=== PATIENT | male | born 1970 | race Caucasian/White ===

== ENCOUNTER 2020-11-29 09:52 | Emergency (ER) | payer SELFPAY ==
[2020-11-29] MEDS ORDERED: NORMAL SALINE 1000 ML 1,000 ML IV ONE (10:08)
[2020-11-29] MEDS ORDERED: KETOROLAC TROMETHAMINE INJ/PF 30 MG/1 ML SDV IV ONE (10:09)
--- NOTE | 2020-11-29 10:14 | ER Document Report ---
ED Medical Screen (RME) - General Chief Complaint: Flank Pain Stated Complaint: LEFT FLANK PAIN - HPI Notes: 11/29/20 10:12 Rapid Medical Exam HPI: Patient is a 50-year-old male presents to the ER with acute onset of left flank pain that began this morning. No injury or trauma. Patient has a history of kidney stones many years ago. Denies any gross hematuria but really was not pain attention this morning denies radiation of pain to abdomen. Intermittent radiation of pain to his left leg. Denies incontinence, saddle anesthesia, lower extremity weakness, fever/chills, nausea vomiting. No treatments tried. No prior abdominal or back surgeries. Physical Exam: GENERAL: Well-appearing, well-nourished and in mild acute distress due to pain HEAD: Atraumatic, normocephalic. ENT: Moist mucous membranes. RESP: Respirations even and unlabored CV- Regular rate. NEURO: No focal neurological deficits. Moves all extremities spontaneously and on command. My involvement in this patients care was limited to a rapid initial assessment. A comprehensive ED assessment and evaluation of the patient, analysis of test results, treatment, and completion of the medical decision making process will be performed by other ER providers. - Related Data Allergies/Adverse Reactions: No Known Allergies Allergy (Unverified 11/29/20 10:02) Home Medications: Cialis, Xanax Physical Exam - Vital signs Vitals: Temp Pulse Resp BP Pulse Ox 97.9 F 85 20 165/113 H 96 11/29/20 09:59 11/29/20 09:59 11/29/20 09:59 11/29/20 09:59 11/29/20 09:59 Course - Vital Signs Vital signs: Temp Pulse Resp BP Pulse Ox 97.9 F 85 20 165/113 H 96 11/29/20 09:59 11/29/20 09:59 11/29/20 09:59 11/29/20 09:59 11/29/20 09:59
[2020-11-29 10:30] LABS: ABSOLUTE BASOPHILS # (AUTO) 0.1 10^3/uL (0.0-0.2); ABSOLUTE EOSINOPHILS # (AUTO) 0.2 10^3/uL (0.0-0.6); ABSOLUTE LYMPHOCYTES (AUTO) 1.5 10^3/uL (0.5-4.7); ABSOLUTE MONOCYTES (AUTO) 0.4 10^3/uL (0.1-1.4); ABSOLUTE NEUT (AUTO) 4.1 10^3/uL (1.7-8.2); BASOPHILS % (AUTO) 1.1 % (0-2); EOSINOPHILS % (AUTO) 3.2 % (0-6); HEMATOCRIT 52.8 % (37.9-51.0); HEMOGLOBIN 18.4 g/dL (13.5-17.0); LYMPHOCYTES % (AUTO) 23.5 % (13-45); MEAN CORPUSCULAR HEMOGLOBIN 31.7 pg (27.0-33.4); MEAN CORPUSCULAR HGB CONC 34.9 g/dL (32.0-36.0); MEAN CORPUSCULAR VOLUME 91 fl (80-97); MONOCYTES % (AUTO) 6.6 % (3-13); PLATELET COUNT 223 10^3/uL (150-450); RED CELL DISTRIBUTION WIDTH 14.1 % (11.5-14.0); SEGMENTED NEUTROPHILS % (AUTO) 65.6 % (42-78); TOTAL CELLS COUNTED % (AUTO) 100 %; WHITE BLOOD COUNT 6.3 10^3/uL (4.0-10.5)
[2020-11-29 10:39] LABS: APPEARANCE,URINE CLEAR; BILIRUBIN,URINE NEGATIVE (NEGATIVE); COLOR,URINE YELLOW; GLUCOSE, URINE NEGATIVE (NEGATIVE); KETONES,URINE TRACE mg/dL (NEGATIVE); LEUKOCYTE ESTERASE,URINE NEGATIVE (NEGATIVE); NITRITE,URINE NEGATIVE (NEGATIVE); PROTEIN,URINE 30 mg/dL (NEGATIVE); URINE SPECIFIC GRAVITY 1.023
[2020-11-29 10:46] LABS: ALBUMIN 4.3 g/dL (3.5-5.0); ALKALINE PHOSPHATASE 66 U/L (38-126); ANION GAP 8 (5-19); ASPARTATE AMINO TRANSFERASE 21 U/L (17-59); BILIRUBIN,DIRECT 0.2 mg/dL (0.0-0.4); BILIRUBIN,TOTAL 0.6 mg/dL (0.2-1.3); BLOOD UREA NITROGEN 14 mg/dL (7-20); CARBON DIOXIDE 21 mmol/L (22-30); CHLORIDE 108 mmol/L (98-107); GLUCOSE 136 mg/dL (75-110); POTASSIUM 4.8 mmol/L (3.6-5.0); TOTAL PROTEIN 7.8 g/dL (6.3-8.2)
--- NOTE | 2020-11-29 10:47 | RADIOLOGY REPORT (SQ) ---
EXAM DESCRIPTION: CT ABD/PELVIS NO ORAL OR IV IMAGES COMPLETED DATE/TIME: 11/29/2020 10:33 am REASON FOR STUDY: left flank pain, kidney stone hx COMPARISON: None. TECHNIQUE: CT scan of the abdomen and pelvis performed without intravenous or oral contrast. Images reviewed with lung, soft tissue, and bone windows. Reconstructed coronal and sagittal MPR images revi ewed. All images stored on PACS. All CT scanners at this facility use dose modulation, iterative reconstruction, and/or weight based d osing when appropriate to reduce radiation dose to as low as reasonably achievable (ALARA). [facility]: Dose Right [facility]: CareDose [facility]: Dose Right [facility]: Teradose 4D [facility]: Smart ACell RADIATION DOSE: CT Rad equipment meets quality standard of care and radiation dose reduction techniq ues were employed. CTDIvol: 10.9 mGy. DLP: 612 mGy-cm.mGy. LIMITATIONS: None. FINDINGS: LOWER CHEST: No significant findings. No nodules or infiltrates. NON-CONTRASTED LIVER, SPLEEN, ADRENALS: Evaluation limited by lack of IV contrast. No identified sign ificant masses. PANCREAS: No masses. No peripancreatic inflammatory changes. GALLBLADDER: Gallstones. No surrounding edema. RIGHT KIDNEY AND URETER: No suspicious masses. Assessment limited by lack of IV contrast. No signif icant calcifications. No hydronephrosis or hydroureter. LEFT KIDNEY AND URETER: No suspicious masses. Assessment limited by lack of IV contrast. No signifi cant calcifications. No hydronephrosis or hydroureter. AORTA AND RETROPERITONEUM: No aneurysm. No retroperitoneal masses or adenopathy. BOWEL AND PERITONEAL CAVITY: Scattered diverticuli. No acute diverticulitis. No mesenteric inflamma tion. APPENDIX: Normal. PELVIS, BLADDER, AND ABDOMINAL WALL:No abnormal masses. No free fluid. Bladder normal. BONES: No significant findings. OTHER: No other significant finding. IMPRESSION: Gallstones. No other significant findings in the abdomen or pelvis. No renal or ureter al stones. COMMENT: Quality ID # [id number]: Final reports with documentation of one or more dose reduction techniques (e.g., Automated exposure control, adjustment of the mA and/or kV according to patient size, use of iterative reconstruction technique) TECHNICAL DOCUMENTATION: JOB ID: [id number] 2010 [employer]- All Rights Reserved Reading location - IP/workstation name: [email or web address]
[2020-11-29] MEDS ORDERED: KETOROLAC TROMETHAMINE INJ/PF 30 MG/1 ML SDV ONE (14:01)
[2020-11-29] MEDS ORDERED: ONDANSETRON HCL INJ/PF 4 MG/2 ML SDV IV ONE (14:08)
[2020-11-29] MEDS ORDERED: MORPHINE SULFATE 10 MG/ML INJ IV ONE (14:08)
--- NOTE | 2020-11-29 14:09 | ER Document Report ---
ED GI/ - General Chief Complaint: Flank Pain Stated Complaint: LEFT FLANK PAIN Time Seen by Provider: 11/29/20 14:02 Notes: Patient is a 50-year-old male who comes emergency department for chief complaint of left flank pain that began this morning. He reports some nausea but denies vomiting. He denies injury, chest pain, abdominal pain, fever/chills, or any other complaints. He states he has had a kidney stone a long time ago and feels this is most likely. He has had a CABG as well. He drinks beer nightly with dinner, denies ever having dependency or withdrawal issues. He denies any abdominal surgeries. - Related Data Allergies/Adverse Reactions: No Known Allergies Allergy (Unverified 11/29/20 10:02) Home Medications: Cialis, Xanax Past Medical History - General Information source: Patient - Social History Smoking Status: Current Every Day Smoker Smoking Education Provided: Yes - <3 min Frequency of alcohol use: Heavy Drug Abuse: None Lives with: Family Family History: Reviewed & Not Pertinent - Immunizations Immunizations up to date: Yes Hx Diphtheria, Pertussis, Tetanus Vaccination: Yes Review of Systems - Review of Systems Constitutional: No symptoms reported EENT: No symptoms reported Cardiovascular: No symptoms reported Respiratory: No symptoms reported Gastrointestinal: See HPI Genitourinary: See HPI Male Genitourinary: No symptoms reported Musculoskeletal: No symptoms reported Skin: No symptoms reported Hematologic/Lymphatic: No symptoms reported Neurological/Psychological: No symptoms reported Physical Exam - Vital signs Vitals: Temp Pulse Resp BP Pulse Ox 97.9 F 85 20 165/113 H 96 11/29/20 09:59 11/29/20 09:59 11/29/20 09:59 11/29/20 09:59 11/29/20 09:59 - Notes Notes: GENERAL: Alert, interacts well. No acute distress. HEAD: Normocephalic, atraumatic. EYES: Pupils equal, round, and reactive to light. Extraocular movements intact. ENT: Oral mucosa moist, tongue midline. Oropharynx unremarkable. Airway patent. LUNGS: Clear to auscultation bilaterally, no wheezes, rales, or rhonchi. No respiratory distress. Non-tender chest wall. HEART: Regular rate and rhythm. No murmur ABDOMEN: There is some tenderness in the epigastric and left upper quadrant areas, remaining abdomen unremarkable. No guarding or rigidity, no rebound tenderness. Bowel sounds present throughout. EXTREMITIES: Moves all 4 extremities spontaneously. No edema, normal radial and dorsalis pedis pulses bilaterally. No cyanosis. BACK: no cervical, thoracic, lumbar midline tenderness. No saddle anesthesia, n ormal distal neurovascular exam. Moves all extremities in full range of motion. NEUROLOGICAL: Alert and oriented x3. Normal speech. Cranial nerves II through XII grossly intact. Strength 5/5 in all extremities. PSYCH: Normal affect, normal mood. SKIN: Warm, dry, normal turgor. No rashes or lesions noted. Course - Re-evaluation Re-evalutation: Patient has some mild abdominal tenderness in the left mid to left upper abdomen, no noted CVA tenderness. I reviewed work-up from triage including CT of the abdomen pelvis which was unremarkable. CBC unremarkable, chemistry unremarkable, lipase is elevated at 1600. Based on patient's nightly alcohol use of 2 beers, elevated lipase, left flank pain, and negative work-up otherwise I suspect pancreatitis secondary to alcohol abuse. I do not see evidence of gallstone pancreatitis on laboratory work-up with normal bilirubin and LFTs, alk phos, LFTs. CAT scan also did not see any obvious abnormality. There are gallstones but based on his overall clinical picture I still do not believe this is gallstone pancreatitis. Patient has not vomited, he is improved after pain medication and fluids, he is tolerating p.o. without any difficulty. Discussed with patient in detail, he will be discharged with return precautions which I discussed at length, patient states he will never drink alcohol again, states he understands return precautions. Stable and well-appearing at time of discharge. - Vital Signs Vital signs: Temp Pulse Resp BP Pulse Ox 97.9 F 77 16 172/97 H 98 11/29/20 09:59 11/29/20 16:38 11/29/20 16:38 11/29/20 16:38 11/29/20 16:38 - Laboratory Results Result Diagrams: 11/29/20 10:20 11/29/20 10:20 Laboratory Results Interpreted: 11/29/20 11/29/20 11/29/20 10:20 10:20 10:20 RBC 5.80 H Hgb 18.4 H Hct 52.8 H RDW 14.1 H Sodium 136.7 L Chloride 108 H Carbon Dioxide 21 L Glucose 136 H Lipase 1647.8 H Urine Protein 30 H Urine Ketones TRACE H Urine Urobilinogen 2.0 H Critical Laboratory Results Reviewed: No Critical Results - Radiology Results Critical Radiology Results Reviewed: No Critical Results Discharge - Discharge Clinical Impression: Flank pain Pancreatitis Qualifiers: Chronicity: acute Pancreatitis type: alcohol induced Acute pancreatitis complication: no infection or necrosis Qualified Code(s): K85.20 - Alcohol induced acute pancreatitis without necrosis or infection Condition: Stable Disposition: HOME, SELF-CARE Additional Instructions: Your work-up indicates pancreatitis. This appears to be the cause of your pain. I recommend clear fluid diet, lots of fluids, then progress to bland diet as pain resolves. Avoid any alcohol and initially avoid any fatty foods. Take pain nausea medication if needed as prescribed. Follow-up with primary care for additional evaluation and management. Return if you worsen including severe worsening pain, vomiting, fever, or any other concerning symptoms. Prescriptions: Oxycodone HCl/Acetaminophen [Percocet 5-325 mg Tablet] 1 - 2 tab PO TID PRN #15 tab PRN Reason: Ondansetron [Zofran Odt 4 mg Tablet] 1 - 2 tab PO Q4H PRN #15 tab.rapdis PRN Reason: For Nausea/Vomiting Forms: Smoking Cessation Education, Return to Work, Elevated Blood Pressure
[2020-11-29] MEDS ORDERED: PROMETHAZINE HCL 25 MG TABLET PO ONE (15:04)
[2020-11-29] MEDS ORDERED: OXYCODONE HCL IR 5 MG TABLET PO ONE (15:04)
[2020-11-29] MEDS ORDERED: ONDANSETRON ODT 4 MG TAB (6 TAB/ER DISP) PO PRN (16:27)
[2020-11-29] MEDS ORDERED: HYDROCODONE/ACETAMINOPHEN 5-325 MG (6 TAB/ER DISP) PO PRN (16:27)
[2020-11-29 16:39] VITALS: BP 172/97
== END 2020-11-29 16:38 | disposition home or self-care (01) ==
LOC: ER 09:52
DX: K85.20 Alcohol induced acute pancreatitis without necrosis or infection (principal); K80.20 Calculus of gallbladder without cholecystitis without obstruction; R11.0 Nausea; R10.9 Unspecified abdominal pain; R10.816 Epigastric abdominal tenderness; R10.812 Left upper quadrant abdominal tenderness; F17.200 Nicotine dependence, unspecified, uncomplicated; Z79.899 Other long term (current) drug therapy; Z87.442 Personal history of urinary calculi; Z95.1 Presence of aortocoronary bypass graft
CPT/HCPCS: 99285; 96361; 96375; 96374; 36415; 83690; 85025; 80053; 81001; 74176; J2270; J2405; J7030

== ENCOUNTER 2020-12-09 09:47 | Emergency (ER) | payer SELFPAY ==
[2020-12-09] MEDS ORDERED: DEXAMETHASONE SOD PHOSPHATE INJ 4 MG/1 ML VIAL IM ONE (10:26)
--- NOTE | 2020-12-09 10:30 | ER Document Report ---
HPI - HPI Time Seen by Provider: 12/09/20 10:09 Pain Level: 3 Notes: 50-year-old male patient presenting to the emergency department with complaints of left sided low back pain. Patient reports pain ongoing for the last 2 weeks, states getting worse over the last few days. He denies any known injury to the area. He denies any loss of control of bowel or bladder, denies any urinary retention or saddle anesthesia. He states he has had a similar pain in the past. He denies any fever, chills, nausea, vomiting or diarrhea. - ROS Systems Reviewed and Negative: Yes All other systems reviewed and negative - See HPI Past Medical History - General Information source: Patient - Social History Smoking Status: Current Every Day Smoker Chew tobacco use (# tins/day): No Frequency of alcohol use: None Drug Abuse: None Family History: Reviewed & Not Pertinent Endocrine Medical History: Reports: Hx Diabetes Mellitus Type 2 Past Surgical History: Reports: Hx Cardiac Surgery - bypass - Immunizations Immunizations up to date: Yes Hx Diphtheria, Pertussis, Tetanus Vaccination: Yes Vertical Provider Document - CONSTITUTIONAL Notes: PHYSICAL EXAMINATION: GENERAL: Well-appearing, well-nourished and in no acute distress. HEAD: Atraumatic, normocephalic. EYES: Pupils equal round extraocular movements intact, conjunctiva are normal. ENT: Nares patent NECK: Normal range of motion LUNGS: No respiratory distress Musculoskeletal: Normal range of motion tenderness with palpation in the lumbar paraspinous region, no vertebral tenderness, step-off or deformity., NEUROLOGICAL: Normal speech, normal gait. PSYCH: Normal mood, normal affect. SKIN: Warm, Dry, normal turgor, no rashes or lesions noted. Course - Re-evaluation Re-evalutation: 12/11/20 09:24 Presentation of a well appearing patient complaining of acute on chronic back pain. No rapid progression of symptoms, systemic symptoms including fevers, chills, weight loss, history of recent bacterial infection, bilateral symptoms, numbness, weakness, difficulty walking, urinary retention or bowel incontinence, personal history of cancer, immunosuppression, diabetes, known AAA, or history of IV drug use. Exam is without point tenderness over vertebral bodies, pulsatile abdominal mass, and patient has symmetric and intact lower extremity strength, sensation, and reflexes without clonus. 2+ symmetric medial malleolar and dorsalis pedis pulses Based on history and physical, I have a very low suspicion of a concerning etiology of pain including epidural compression syndrome, spinal infection, transverse myelitis, malignancy, abdominal aortic aneurysm, renal colic, acute lower extremity claudication, neurogenic claudication, ankylosing spondylitis, or other intra-abdominal process. Due to absence of concerning risk factors in history and physical as well as absence of rapidly progressive, severe, or bilateral symptoms, will defer imaging at this point. Plan to manage conservatively with outpatient analgesia, analgesia, and physical therapy. - Vital Signs Vital signs: Temp Pulse Resp BP Pulse Ox 97.6 F 81 16 162/112 H 99 12/09/20 09:51 12/09/20 09:51 12/09/20 09:51 12/09/20 09:51 12/09/20 09:51 - Laboratory Results Critical Laboratory Results Reviewed: No Critical Results - Radiology Results Critical Radiology Results Reviewed: No Critical Results Discharge - Discharge Clinical Impression: Back pain Qualifiers: Back pain location: low back pain Chronicity: acute Back pain laterality: left Sciatica presence: with sciatica Sciatica laterality: sciatica of left side Qualified Code(s): M54.42 - Lumbago with sciatica, left side Sciatica Qualifiers: Laterality: left Qualified Code(s): M54.32 - Sciatica, left side Condition: Stable Disposition: HOME, SELF-CARE Instructions: Low Back Pain ([facility]), Sciatica ([facility]) Additional Instructions: Please follow-up with your primary care provider for possible physical therapy or MRI if your pain continues. The ER will not be able to prescribe any controlled substances for back pain. Prescriptions: Oxycodone HCl/Acetaminophen [Percocet 5-325 mg Tablet] 1 tab PO Q6HP PRN #12 tablet PRN Reason: Methocarbamol [Robaxin 750 mg Tablet] 750 mg PO Q6HP PRN #20 tablet PRN Reason: Forms: Return to Work Referrals: ISI BAR MD [ACTIVE STAFF] - Follow up as needed MAN ARGUELLES MD [ACTIVE STAFF] - Follow up as needed
[2020-12-09 10:40] VITALS: BP 158/98
== END 2020-12-09 10:40 | disposition home or self-care (01) ==
LOC: ER 09:47
DX: M54.42 Lumbago with sciatica, left side (principal); E11.9 Type 2 diabetes mellitus without complications; F17.200 Nicotine dependence, unspecified, uncomplicated
CPT/HCPCS: 99284; 96372; J1100

== ENCOUNTER 2020-12-11 09:31 | Emergency (ER) | payer SELFPAY ==
--- NOTE | 2020-12-11 10:23 | ER Document Report ---
ED Medical Screen (RME) - General Chief Complaint: Hip Pain Stated Complaint: LEFT HIP PAIN Time Seen by Provider: 12/11/20 10:21 Primary Care Provider: TAN PINON [Primary Care Provider] - Follow up as needed Notes: HPI: 50-year-old male presenting again to the emergency department complaining of left lower back pain into the hip and down the leg with numbness and tingling. States he cannot walk or stand. States this is the third time he has been here for this problem came by ambulance. States that initially he was given a shot of steroids and oxycodone and a muscle relaxer which did not help. States he called his primary and has an MRI scheduled for Sunday of this coming week. States the pain was so bad he could not wait so decided to come back to the emergency department. PHYSICAL EXAMINATION: There is tenderness along the left lower lumbar back into the left hip region. Limited exam by positioning in triage and patient comfort. I have greeted and performed a rapid initial assessment of this patient. A comprehensive ED assessment and evaluation of the patient, analysis of test results and completion of medical decision making process will be conducted by an additional ED providers. Please note that clinical decision making for this patient was made during the 2019 pandemic of novel coronavirus which caused a significant strain on the healthcare system including at this particular facility. Criteria for admission discharge and level of care decisions as well as treatment decisions have necessarily changed - Related Data Allergies/Adverse Reactions: No Known Allergies Allergy (Verified 12/11/20 10:12) Past Medical History Endocrine Medical History: Reports: Hx Diabetes Mellitus Type 2 Past Surgical History: Reports: Hx Cardiac Surgery - bypass - Immunizations Immunizations up to date: Yes Hx Diphtheria, Pertussis, Tetanus Vaccination: Yes Physical Exam - Vital signs Vitals: Temp Pulse Resp BP Pulse Ox 98.2 F 73 24 H 147/93 H 94 12/11/20 09:45 12/11/20 09:45 12/11/20 09:45 12/11/20 09:45 12/11/20 09:45 Course - Vital Signs Vital signs: Temp Pulse Resp BP Pulse Ox 98.2 F 73 24 H 147/93 H 94 12/11/20 09:45 12/11/20 09:45 12/11/20 09:45 12/11/20 09:45 12/11/20 09:45 Doctor's Discharge - Discharge Referrals: LOCALMD,NO [Primary Care Provider] - Follow up as needed
[2020-12-11 11:15] LABS: ABSOLUTE BASOPHILS # (AUTO) 0.2 10^3/uL (0.0-0.2); ABSOLUTE EOSINOPHILS # (AUTO) 0.4 10^3/uL (0.0-0.6); ABSOLUTE LYMPHOCYTES (AUTO) 3.7 10^3/uL (0.5-4.7); ABSOLUTE MONOCYTES (AUTO) 0.6 10^3/uL (0.1-1.4); ABSOLUTE NEUT (AUTO) 5.2 10^3/uL (1.7-8.2); BASOPHILS % (AUTO) 1.9 % (0-2); EOSINOPHILS % (AUTO) 3.7 % (0-6); HEMATOCRIT 53.9 % (37.9-51.0); HEMOGLOBIN 18.9 g/dL (13.5-17.0); LYMPHOCYTES % (AUTO) 36.4 % (13-45); MEAN CORPUSCULAR HGB CONC 35.1 g/dL (32.0-36.0); MEAN CORPUSCULAR VOLUME 91 fl (80-97); MONOCYTES % (AUTO) 6.1 % (3-13); PLATELET COUNT 241 10^3/uL (150-450); RED BLOOD COUNT 5.92 10^6/uL (4.35-5.55); RED CELL DISTRIBUTION WIDTH 14.1 % (11.5-14.0); SEGMENTED NEUTROPHILS % (AUTO) 51.9 % (42-78); TOTAL CELLS COUNTED % (AUTO) 100 %; WHITE BLOOD COUNT 10.1 10^3/uL (4.0-10.5)
[2020-12-11 11:29] LABS: ALBUMIN 4.2 g/dL (3.5-5.0); ALKALINE PHOSPHATASE 45 U/L (38-126); ANION GAP 10 (5-19); ASPARTATE AMINO TRANSFERASE 22 U/L (17-59); BILIRUBIN,DIRECT 0.2 mg/dL (0.0-0.4); BILIRUBIN,TOTAL 0.9 mg/dL (0.2-1.3); BLOOD UREA NITROGEN 20 mg/dL (7-20); CARBON DIOXIDE 23 mmol/L (22-30); CHLORIDE 104 mmol/L (98-107); GLUCOSE 121 mg/dL (75-110); POTASSIUM 4.5 mmol/L (3.6-5.0); TOTAL PROTEIN 7.6 g/dL (6.3-8.2)
[2020-12-11] MEDS ORDERED: MORPHINE SULFATE 10 MG/ML INJ IV ONE ×2 (12:29→15:28)
[2020-12-11] MEDS ORDERED: METHYLPREDNISOLONE INJ 125 MG/2 ML SDV IV ONE (12:29)
[2020-12-11] MEDS ORDERED: ONDANSETRON HCL INJ/PF 4 MG/2 ML SDV IV ONE ×2 (12:29→15:28)
[2020-12-11] MEDS ORDERED: KETOROLAC TROMETHAMINE INJ/PF 30 MG/1 ML SDV IV ONE (12:29)
--- NOTE | 2020-12-11 12:48 | ER Document Report ---
Entered by VIOLET NATHAN SCRIBE 12/11/20 1220 Acting as scribe for:MONTSE ROMO MD ED Neck/Back Problem - General Chief Complaint: Hip Pain Stated Complaint: LEFT HIP PAIN Time Seen by Provider: 12/11/20 10:21 Primary Care Provider: TAN PINON [NO LOCAL MD] - Follow up as needed Information source: Patient Notes: This 50 year old male patient presents to the emergency department today with complaints of left low back/hip pain for the last few weeks. He reports that two days ago he bent over to throw a dog pee pad down on the ground and when he stood back up he "felt something tear, or rip, or burst" and it brought him to his knees. He reports some vague LLE numbness since this incident that goes from this left lateral thigh down to around his ankle. - Related Data Allergies/Adverse Reactions: No Known Allergies Allergy (Verified 12/11/20 10:12) Past Medical History - General Information source: Patient - Social History Smoking Status: Current Every Day Smoker Cigarette use (# per day): Yes Frequency of alcohol use: None Drug Abuse: Marijuana Lives with: Family Family History: Reviewed & Not Pertinent - Past Medical History Cardiac Medical History: Reports: Hx Coronary Artery Disease Past Surgical History: Reports: Hx Coronary Artery Bypass Graft - Immunizations Immunizations up to date: Yes Hx Diphtheria, Pertussis, Tetanus Vaccination: Yes Review of Systems - Review of Systems Constitutional: No symptoms reported EENT: No symptoms reported Cardiovascular: No symptoms reported Respiratory: No symptoms reported Gastrointestinal: No symptoms reported Genitourinary: No symptoms reported Male Genitourinary: No symptoms reported Musculoskeletal: See HPI, Joint pain - left hip/back pain Skin: No symptoms reported Hematologic/Lymphatic: No symptoms reported Neurological/Psychological: No symptoms reported -: Yes All other systems reviewed and negative Physical Exam - Vital signs Vitals: Temp Pulse Resp BP Pulse Ox 98.2 F 73 24 H 147/93 H 94 12/11/20 09:45 12/11/20 09:45 12/11/20 09:45 12/11/20 09:45 12/11/20 09:45 - Notes Notes: Physical Exam: General: Alert, appears well. HEENT: Normocephalic. Atraumatic. PERRL. Extraocular movements intact. O ropharynx clear. Neck: Supple. Non-tender. Respiratory: No respiratory distress. Clear and equal breath sounds bilaterally. Cardiovascular: Regular rate and rhythm. Abdominal: Obese. Non-tender. No distension. Normal Bowel Sounds. Back: Left sided sacral tenderness to palpation. Negative straight leg raise bilaterally. Lumbar extension causes pain down the left lateral thigh and left l ow back. Extremities: Moves all four extremities. Upper extremities: Normal inspection. Normal ROM. Lower extremities: Normal inspection. No edema. Normal ROM. Neurological: Normal cognition. AAOx4. Normal speech. Psychological: Normal affect. Normal Mood. Skin: Warm. Dry. Normal color. Course - Vital Signs Vital signs: Temp Pulse Resp BP Pulse Ox 98.2 F 73 24 H 147/93 H 94 12/11/20 09:45 12/11/20 09:45 12/11/20 09:45 12/11/20 09:45 12/11/20 09:45 - Laboratory Results Result Diagrams: 12/11/20 10:35 12/11/20 10:35 Laboratory Results Interpreted: 12/11/20 12/11/20 10:35 10:35 RBC 5.92 H Hgb 18.9 H Hct 53.9 H RDW 14.1 H Sodium 136.7 L Glucose 121 H Critical Laboratory Results Reviewed: No Critical Results - Radiology Results Radiology Results Interpreted: 12/11/20 14:53 MRI shows left foraminal annular tear and disc protrusion causing moderate left foraminal stenosis and partial effacement of the fat around the exiting left L4 nerve root. Critical Radiology Results Reviewed: Yes Attending or Supervising Physician who Reviewed Radiology: MONTSE ROMO Discharge - Discharge Clinical Impression: Herniation of left side of L4-L5 intervertebral disc, Lumbosacral radiculopathy at L4 Condition: Stable Disposition: HOME, SELF-CARE Additional Instructions: Herniated Disc: You have a herniated disc. A vertebral disc is a tissue "cushion" between the bones of the spine. When it herniates, a portion bulges out. If it pushes on a nerve, it can cause radiation of pain, numbness, weakness, or tingling in the area served by the affected nerve. Most herniated discs do NOT need surgery. In fact about one-quarter of normal, symptom-free people have at least one herniated disc. Symptoms will usually go away after a few weeks. Rest on a firm surface. Avoid lying on your stomach. If on your back, put a pillow under the knees. If on your side, bend your legs and put a pillow between the knees. Temporarily avoid bending, lifting, and other activity that increases pain. Depending on the severity of symptoms, we may prescribe antiinflammatory medicine such as ibuprofen, corticosteroids, muscle relaxers, or narcotic pain medication. Gentle heat may be used intermittently along the spine. Spinal manipulation or adjustment is usually not recommended for disk herniation. Exercises to strengthen your back and abdominal muscles are prescribed as your symptoms improve. Your doctor will advise you on the proper care at each stage in your recovery. You may be better in a few days -- or healing may take several weeks. Return or call the doctor if you develop severe unrelieved pain, increasing weakness or numbness, or loss of bowel or bladder control. Follow the above instructions. Take medications as prescribed. Follow-up with a spine surgeon to review your MRI and treatment plan. RETURN TO THE EMERGENCY ROOM IF ANY NEW OR WORSENING SYMPTOMS. You were given a work note to return to work work a week from this Sunday. You will have been off of the steroids completely for a few days at that point, if you continue to have pain then you should not try to return to work. Prescriptions: Prednisone [Deltasone 10 mg Tablet] 10 mg PO ASDIR PRN #27 tablet PRN Reason: Oxycodone HCl/Acetaminophen [Percocet 5-325 mg Tablet] 1 tab PO ASDIR PRN #15 tablet PRN Reason: Forms: Return to Work Referrals: LOCALMD,NO [NO LOCAL MD] - Follow up as needed I personally performed the services described in the documentation, reviewed and edited the documentation which was dictated to the scribe in my presence, and it accurately records my words and actions.
[2020-12-11 12:59] LABS: APPEARANCE,URINE CLEAR; BILIRUBIN,URINE NEGATIVE (NEGATIVE); COLOR,URINE YELLOW; GLUCOSE, URINE NEGATIVE (NEGATIVE); KETONES,URINE NEGATIVE (NEGATIVE); LEUKOCYTE ESTERASE,URINE NEGATIVE (NEGATIVE); NITRITE,URINE NEGATIVE (NEGATIVE); PROTEIN,URINE NEGATIVE (NEGATIVE); URINE SPECIFIC GRAVITY 1.016; UROBILINOGEN,URINE NEGATIVE mg/dL (<2.0)
[2020-12-11 13:16] LABS: URINE AMPHETAMINES SCREEN NEGATIVE; URINE BARBITURATES SCREEN NEGATIVE; URINE COCAINE SCREEN NEGATIVE; URINE METHADONE SCREEN NEGATIVE; URINE PHENCYCLIDINE SCREEN NEGATIVE
[2020-12-11 13:23] LABS: URINE BENZODIAZEPINES SCREEN UNCONFIRMED POSITIVE; URINE MARIJUANA (THC) SCREEN UNCONFIRMED POSITIVE
--- NOTE | 2020-12-11 14:49 | RADIOLOGY REPORT (SQ) ---
EXAM DESCRIPTION: MRI LUMBAR SPINE WITHOUT IMAGES COMPLETED DATE/TIME: 12/11/2020 2:30 pm REASON FOR STUDY: Left lumbar radiculopathy COMPARISON: CT abdomen pelvis 11/29/2020 TECHNIQUE: Sagittal and Axial imaging includes T1, T2, STIR and gradient echo sequences. Coronal T2/ HASTE imaging. LIMITATIONS: None. FINDINGS: VISUALIZED UPPER ABDOMEN: Limited evaluation. No acute or suspicious findings suggested. SEGMENTATION: No transitional anatomy. The lowest well-developed disc space is labeled L5-S1. ALIGNMENT: Anatomic. VERTEBRAE: Intact. BONE MARROW: Normal. No marrow replacement or reactive changes. DISC SIGNAL: Decreased T2 weighted intervertebral disc signal at L3-4 and L4-5 POSTERIOR ELEMENTS: Generally intact. No pars defect evident. HARDWARE: None in the spine. CORD AND CONUS: Normal in size and signal intensity. Conus at the L1 level. SOFT TISSUES: No aortic aneurysm seen. No bulky retroperitoneal adenopathy or mass. No paraspinal mas s or fluid. T12-L1: At the upper edge of the field of view. Tiny left paracentral disc protrusion bone sagittal image 9. No high-grade central or foraminal narrowing. L1-L2: No significant spinal stenosis or exit foraminal stenosis. L2-L3: No significant spinal stenosis or exit foraminal stenosis. L3-L4: Mild posterior disc bulging, mild bilateral facet hypertrophy. No significant central canal n arrowing. Mild bilateral inferior foraminal narrowing left greater than right. L4-L5: There is a left foraminal annular tear and disc protrusion, causing moderate left foraminal st enosis and partial effacement of the fat around the exiting left L4 nerve root. This is best shown o n axial T2 image 21 and sagittal image 12. Elsewhere at L4-5, mild diffuse posterior disc bulging, mild facet hypertrophy causes mild right fora josé luis narrowing. No central stenosis L5-S1: Mild bilateral facet hypertrophy. Minimal posterior disc bulging. No central or foraminal na rrowing SACRUM: Visualized upper sacrum intact. OTHER: No other significant findings. IMPRESSION: Moderate left L4-5 foraminal narrowing with left foraminal annular tear and disc bulge. TECHNICAL DOCUMENTATION: JOB ID: [id number] [email or web address] All Rights Reserved Reading location - IP/workstation name: [email or web address]
[2020-12-11 16:18] VITALS: BP 145/89
== END 2020-12-11 16:18 | disposition home or self-care (01) ==
LOC: ER 09:31
DX: M51.16 Intervertebral disc disorders with radiculopathy, lumbar region (principal); M25.552 Pain in left hip; R20.0 Anesthesia of skin; F17.210 Nicotine dependence, cigarettes, uncomplicated; E11.9 Type 2 diabetes mellitus without complications; Z95.1 Presence of aortocoronary bypass graft
CPT/HCPCS: 96376; 99285; 96374; 96375; 36415; 83690; 85025; 80053; 81001; 80307; 83036; 72148; J2930; J1885; J2270; J2405